=== PATIENT | male | born 1975 | race Two or more races ===

== ENCOUNTER 2020-11-02 07:49 | Emergency (ER) | payer SELFPAY ==
[~2020-11-02] VITALS: Ht 170.2 cm; Wt 59.7 kg
[~2020-11-02 07:49] MED LIST: DIPH25CA58 PO
[2020-11-02] MEDS ORDERED: MECLIZINE HCL 12.5 MG TABLET. PO ONE (09:00)
[2020-11-02] MEDS ORDERED: ONDANSETRON PF 4 MG/2 ML VIAL. IVP ONE (09:00)
[2020-11-02 09:09] LABS: BASO # 0.1 x10^3/uL (0.0-0.2); BASO % 2 % (0-3); EOS # 0.1 x10^3/uL (0.0-0.7); EOS % 3 % (0-3); HEMATOCRIT 39.1 % (39.0-53.0); HEMOGLOBIN 13.3 g/dL (13.0-17.5); LYMPH # 1.1 x10^3/uL (1.0-4.8); LYMPH % 24 % (24-48); MEAN CORPUSCULAR HEMOGLOBIN 31 pg (25-35); MEAN CORPUSCULAR HGB CONC 34 g/dL (31-37); MEAN CORPUSCULAR VOLUME 92 fL (79-100); MONO # 0.6 x10^3/uL (0.0-1.1); MONO % 12 % (0-9); NEUT # 2.8 x10^3/uL (1.8-7.7); NEUT % 60 % (31-73); PLATELET COUNT 502 x10^3/uL (140-400); RED BLOOD COUNT 4.24 x10^6/uL (4.30-5.70); RED CELL DISTRIBUTION WIDTH 14.4 % (11.5-14.5); WHITE BLOOD COUNT 4.8 x10^3/uL (4.0-11.0)
--- NOTE | 2020-11-02 09:16 | ED.ADGEN ---
Past Medical History Past Medical History: Hypertension, Renal Failure Past Surgical History: Cholecystectomy Smoking Status: Never Smoker Alcohol Use: None General Adult EDM: Chief Complaint: NAUSEA/VOMITING/DIARRHEA HPI: HPI: Patient is a 45 year old male coming in for dizziness. Patient's describes it as a spinning that is worse with movement and walking. Patient has a history significant for the recent diagnosis of kidney failure. Was hospitalized about 2 weeks ago and had a cholecystectomy as well as a dialysis shunt placed. Supposed be getting dialysis 3 times a week, Saturdays, has not had dialysis in since last which is 5 days ago. Patient states he has had one episode of vomiting tonight had a small amount of diarrhea. Denies any fever but is complaining of chills and body aches. Review of Systems: Review of Systems: All other systems within normal limits except for as noted in the HPI Current Medications: Current Medications Medications (Trade) Dose Ordered Sig/Vasile Start Time Stop Time Status Last Admin Dose Admin Meclizine HCl (Antivert) 25 mg 1X ONCE 11/02/20 09:00 11/02/20 09:04 DC 11/02/20 09:23 25 MG Ondansetron HCl (Zofran) 4 mg 1X ONCE 11/02/20 09:00 11/02/20 09:04 DC 11/02/20 09:23 4 MG Allergies: Allergies: Allergies Coded Allergies Type Severity Reaction Last Updated Verified No Known Drug Allergies 10/17/20 No Physical Exam: PE: Constitutional: Well developed, well nourished, no acute distress, non-toxic appearance. [] HENT: Normocephalic, atraumatic, bilateral external ears normal, nose normal. [] Eyes: PERRLA, conjunctiva normal, no discharge. No nystagmus, extraocular was intact [] Neck: No rigidity, supple, no stridor. [] Cardiovascular: Regular rate and rhythm, brisk cap refill [] Lungs & Thorax: Non labored symmetric respirations, no tachypnea or respiratory distress [] Abdomen: Soft, nondistended. Skin: Warm, dry, no erythema, no rash. Right IJ dialysis shunt in place, dressing clean dry and intact. Well-healing abdominal surgical wound [] Back: Unremarkable Extremities: No deformities, range of motion grossly intact, no lower extremity edema [] Neurologic: Alert and oriented X 3, no focal deficits noted. [] Psychologic: Affect normal, judgement normal, mood normal. [] Current Patient Data: Labs: Laboratory Tests Test 11/02/20 08:23 White Blood Count 4.8 x10^3/uL (4.0-11.0) Red Blood Count 4.24 x10^6/uL (4.30-5.70) L Hemoglobin 13.3 g/dL (13.0-17.5) Hematocrit 39.1 % (39.0-53.0) Mean Corpuscular Volume 92 fL (79-100) Mean Corpuscular Hemoglobin 31 pg (25-35) Mean Corpuscular Hemoglobin Concent 34 g/dL (31-37) Red Cell Distribution Width 14.4 % (11.5-14.5) Platelet Count 502 x10^3/uL (140-400) H Neutrophils (%) (Auto) 60 % (31-73) Lymphocytes (%) (Auto) 24 % (24-48) Monocytes (%) (Auto) 12 % (0-9) H Eosinophils (%) (Auto) 3 % (0-3) Basophils (%) (Auto) 2 % (0-3) Neutrophils # (Auto) 2.8 x10^3/uL (1.8-7.7) Lymphocytes # (Auto) 1.1 x10^3/uL (1.0-4.8) Monocytes # (Auto) 0.6 x10^3/uL (0.0-1.1) Eosinophils # (Auto) 0.1 x10^3/uL (0.0-0.7) Basophils # (Auto) 0.1 x10^3/uL (0.0-0.2) Sodium Level 144 mmol/L (136-145) Potassium Level 5.0 mmol/L (3.5-5.1) Chloride Level 104 mmol/L (98-107) Carbon Dioxide Level 31 mmol/L (21-32) Anion Gap 9 (6-14) Blood Urea Nitrogen 43 mg/dL (8-26) H Creatinine 3.7 mg/dL (0.7-1.3) H Estimated GFR (Cockcroft-Gault) 17.7 BUN/Creatinine Ratio 12 (6-20) Glucose Level 101 mg/dL (70-99) H Calcium Level 9.2 mg/dL (8.5-10.1) Phosphorus Level 4.6 mg/dL (2.6-4.7) Magnesium Level 1.7 mg/dL (1.8-2.4) L Total Bilirubin 0.8 mg/dL (0.2-1.0) Aspartate Amino Transferase (AST) 12 U/L (15-37) L Alanine Aminotransferase (ALT) 52 U/L (16-63) Alkaline Phosphatase 347 U/L (46-116) H Troponin I Quantitative < 0.017 ng/mL (0.000-0.055) CH-Fau-E-Type Natriuretic Peptide 198 pg/mL (0-124) H Total Protein 7.8 g/dL (6.4-8.2) Albumin 3.8 g/dL (3.4-5.0) Albumin/Globulin Ratio 1.0 (1.0-1.7) Laboratory Tests 11/02/20 08:23 Laboratory Tests 11/02/20 08:23 Vital Signs: Vital Signs Date Time Temp Pulse Resp B/P (MAP) Pulse Ox O2 Delivery O2 Flow Rate FiO2 11/02/20 09:31 66 152/102 (119) 100 Room Air 11/02/20 08:10 98.1 16 98.1 EKG: EKG: Sinus rhythm, heart rate 64 bpm, normal axis, no ST elevation or depression large T waves in septal leads [] Heart Score: C/O Chest Pain: No Risk Factors: Risk Factors: DM, Current or recent (<one month) smoker, HTN, HLP, family history of CAD, obesity. Risk Scores: Score 0 - 3: 2.5% MACE over next 6 weeks - Discharge Home Score 4 - 6: 20.3% MACE over next 6 weeks - Admit for Clinical Observation Score 7 - 10: 72.7% MACE over next 6 weeks - Early Invasive Strategies Radiology/Procedures: Radiology/Procedures: [facility] [address] [place], [place] [id number] IMAGING REPORT Signed PATIENT: TIMMY LITLTE ACCOUNT: [id number] : 1975 LOCATION: ER AGE: 45 SEX: M EXAM STATUS: REG ER ORD. PHYSICIAN: WILLIAM DURBIN MD REASON: Rt. shoulder pain PROCEDURE: SHOULDER 2+V RIGHT EXAM: RIGHT SHOULDER 3 VIEWS. HISTORY: Right shoulder pain. COMPARISON: None. FINDINGS: No fractures are identified. Glenohumeral joint spaces and alignment are maintained. Acromioclavicular joint spaces and alignment are maintained. A right internal jugular hemodialysis catheter has its tip in the superior cavoatrial junction. IMPRESSION: 1. No fracture or clear degenerative change. Electronically signed by: Jess Lezama MD (11/02/2020 11:10 AM) [id number] DICTATED and SIGNED BY: KINA LEZAMA MD DATE: 11/02/20 [id number] 0 [] Course & Med Decision Making: Course & Med Decision Making Pertinent Labs and Imaging studies reviewed. (See chart for details) Labs show no significant electrolyte abnormalities and kidney functioning continue to improve. Patient is making urine in emergency department that is normal looking. Discussed with Dr. Ochoa, would like port flushed and redressed. Would like 24-hour urine collection. Patient sent home with a urinal and instructions. She states that the office will call him to arrange follow-up and that he does not need dialysis today. [] Wanda Disclaimer: Wanda Disclaimer: This electronic medical record was generated, in whole or in part, using a voice recognition dictation system. Departure Departure Impression: Primary Impression: Dizziness Additional Impression: Right shoulder pain Disposition: HOME / SELF CARE / HOMELESS Condition: STABLE Referrals: NO PCP (PCP) Patient Instructions: Vertigo, [id number] Additional Instructions: Collect all urine for 24 hours after leaving emergency department. The pest control specialist will call you to schedule follow-up appointment in the next week. Scripts Meclizine Hcl (MECLIZINE HCL) 25 Mg Tablet 1 TAB PO TID for dizziness, #20 TAB Prov: WILLIAM DURBIN MD 11/02/20 Problem Qualifiers WILLIAM DURBIN MD Nov 02, 2020 09:16
[2020-11-02 09:19] LABS: CALCIUM 9.2 mg/dL (8.5-10.1); CREATININE 3.7 mg/dL (0.7-1.3); GFR 17.7
[2020-11-02 09:35] LABS: ALBUMIN 3.8 g/dL (3.4-5.0); MAGNESIUM 1.7 mg/dL (1.8-2.4); PHOSPHORUS 4.6 mg/dL (2.6-4.7); TOTAL BILIRUBIN 0.8 mg/dL (0.2-1.0); TOTAL PROTEIN 7.8 g/dL (6.4-8.2)
[2020-11-02] MEDS ORDERED: MECL-75 PO (11:05)
--- NOTE | 2020-11-02 11:13 | RAD ---
EXAM: RIGHT SHOULDER 3 VIEWS. HISTORY: Right shoulder pain. COMPARISON: None. FINDINGS: No fractures are identified. Glenohumeral joint spaces and alignment are maintained. Acromi oclavicular joint spaces and alignment are maintained. A right internal jugular hemodialysis catheter has its tip in the superior cavoatrial junction. IMPRESSION: 1. No fracture or clear degenerative change. Electronically signed by: Jess Lezama MD (11/02/2020 11:10 AM) [id number]
[2020-11-02 12:01] VITALS: BP 165/118
== END 2020-11-02 12:15 | disposition home or self-care (01) ==
LOC: ER 07:49
DX: R42 Dizziness and giddiness (principal); M25.511 Pain in right shoulder; R19.7 Diarrhea, unspecified; M79.10 Myalgia, unspecified site; I12.9 Hypertensive chronic kidney disease with stage 1 through stage 4 chronic kidney disease, or unspecified chronic kidney disease; N18.9 Chronic kidney disease, unspecified; Z90.49 Acquired absence of other specified parts of digestive tract
CPT/HCPCS: 36415; 73030; 80053; 83735; 83880; 84100; 84484; 85025; 93005; 96374; 99285; J2405; J8597

== ENCOUNTER 2020-11-05 13:00 | Emergency (ER) | payer SELFPAY ==
[~2020-11-05] VITALS: Ht 182.9 cm; Wt 54.5 kg
[~2020-11-05 13:00] MED LIST changes: +MECL-75 PO
[2020-11-05] MEDS ORDERED: ONDANSETRON PF 4 MG/2 ML VIAL. IVP ONE (14:45)
[2020-11-05] MEDS ORDERED: fentaNYL PF VIAL 100 MCG/2 ML VIAL IVP ONE (14:45)
--- NOTE | 2020-11-05 14:46 | PHYS DOC ---
Past Medical History Past Medical History: Hypertension, Renal Failure Past Surgical History: Cholecystectomy Additional Past Surgical Histo: RENAL BX,DIALYSYS PORT R CHEST,LAP MARK Smoking Status: Never Smoker Alcohol Use: None General Adult EDM: Chief Complaint: WEAKNESS/GENERALIZED HPI: HPI: Patient is a 45 year old male who presents with had a cholecystectomy on October 12 and an dialysis port put in the right chest on the October 17. Patient states he last got dialysis on last . Comes in today with 2 days of nausea, vomiting, headache, dizziness and right flank pain. He rates it at a 5 out of 10. It appears that he had a renal biopsy on 10/20. He denies shortness of air, chest pain, diarrhea, numbness or tingling, focal weakness, syncope, vision change. He states he cannot get into be seen at any current clinic. He states he supposed to be having dialysis 3 days a week but he has no follow-up care. Patient states his only history is renal failure. Patient is Kinyarwanda-speaking and an dramatic teacher phone is used. Patient is a poor historian. Review of Systems: Review of Systems: Constitutional: Denies fever or chills. [] Eyes: Denies change in visual acuity. [] HENT: Denies nasal congestion or sore throat. [] Respiratory: Denies cough or shortness of breath. [] Cardiovascular: Denies chest pain or edema. [] GI: Denies abdominal pain, +nausea, +vomiting, denies bloody stools or diarrhea. [] : Denies dysuria. [] Musculoskeletal: + Right flank back pain or denies joint pain. + Generalized weakness [] Integument: Denies rash. [] Neurologic: + headache, + dizziness. Denies focal weakness or sensory changes. [] Endocrine: Denies polyuria or polydipsia. [] Lymphatic: Denies swollen glands. [] Psychiatric: Denies depression or anxiety. [] Heart Score: C/O Chest Pain: No Risk Factors: Risk Factors: DM, Current or recent (<one month) smoker, HTN, HLP, family history of CAD, obesity. Risk Scores: Score 0 - 3: 2.5% MACE over next 6 weeks - Discharge Home Score 4 - 6: 20.3% MACE over next 6 weeks - Admit for Clinical Observation Score 7 - 10: 72.7% MACE over next 6 weeks - Early Invasive Strategies Allergies: Allergies: Allergies Coded Allergies Type Severity Reaction Last Updated Verified No Known Drug Allergies 10/17/20 No Physical Exam: PE: Constitutional: Well developed, well nourished, no acute distress, non-toxic appearance. [] HENT: Normocephalic, atraumatic, bilateral external ears normal, oropharynx moist, no oral exudates, nose normal. [] Eyes: PERRLA, EOMI, conjunctiva normal, no discharge. [] Neck: Normal range of motion, no tenderness, supple, no stridor. [] Cardiovascular:Heart rate regular rhythm, no murmur [] Lungs & Thorax: Bilateral breath sounds clear to auscultation [] Abdomen: Bowel sounds normal, soft, no tenderness, no masses, no pulsatile masses. [] Skin: Warm, dry, no erythema, no rash. [] Back: No tenderness, no CVA tenderness. [] Extremities: No tenderness, no cyanosis, no clubbing, ROM intact, no edema. [] Neurologic: Alert and oriented X 3, normal motor function, normal sensory function, no focal deficits noted. [] Psychologic: Affect normal, judgement normal, mood normal. Normal physical exam [] Current Patient Data: Labs: Laboratory Tests Test 11/05/20 13:49 Glucose (Fingerstick) 97 mg/dL (70-99) EKG: EKG: [[address] Combs is sinus rhythm and no STEMI Radiology/Procedures: Radiology/Procedures: [] Impression: [facility] [address] [place], [place] [phone] IMAGING REPORT Signed PATIENT: TIMMY LITTLE ACCOUNT: [id number] : 1975 LOCATION: ER AGE: 45 SEX: M EXAM STATUS: REG ER ORD. PHYSICIAN: RACHAEL COTTO APRN REASON: pain, vomiting PROCEDURE: CT ABDOMEN PELVIS WO CONTRAST Exam: CT abdomen/pelvis without contrast Indication: Pain, vomiting Comparison: CT abdomen and pelvis 10/17/2020 Technique: Helical CT imaging performed of the abdomen and pelvis without contrast. Sagittal and coronal reformats were obtained. One or more of the following individualized dose reduction techniques were utilized for this examination: 1. Automated exposure control 2. Adjustment of the mA and/or kV according to patient size 3. Use of iterative reconstruction technique. Findings: Lower chest: Mild atelectasis in the lung bases. Heart is normal in size. Liver: Normal noncontrast appearance of the liver. Gallbladder/Biliary Tree: The gallbladder is surgically absent. Bile ducts are unremarkable. Pancreas: Normal. Spleen: Normal. Adrenal Glands: Normal. Kidneys/Ureters/Bladder: Normal. No hydronephrosis or nephrolithiasis. Reproductive Organs: Normal. Stomach, small bowel, and colon: The stomach, small bowel, colon, and appendix are normal. Vasculature: Normal. Lymph Nodes: Normal. Peritoneum and retroperitoneum: No free fluid or free air. Bones: No acute osseous abnormality. IMPRESSION: Interval cholecystectomy. No acute abnormality in the abdomen and pelvis. Electronically signed by: Christie Lester MD (11/05/2020 4:42 PM) [id number] DICTATED and SIGNED BY: CHRISTIE LESTER MD DATE: 11/05/20 [id number] Course & Med Decision Making: Course & Med Decision Making Pertinent Labs and Imaging studies reviewed. (See chart for details) See HPI. Alert and oriented x4. Abdomen is soft and nontender. Port site looks clean and no signs of infection. Speaks in full clear sentences. Patient states he is still making urine. Afebrile. No nystagmus. PERRLA. Ambulatory with a steady gait. Blood work unremarkable. Patient does not require dialysis at this time. I did talk to Dr. Díaz he states the patient does not require dialysis this time I look back into the notes and social services manager stated that since the patient is self-pay Jon refused him and he would have to pay [id number]. Patient cannot pay [id number]. So social services manager told the patient that he would have to come to the emergency room to be checked for need of dialysis. Chest x- ray is looking better than it did previously. He is not hypoxic. Vital signs are within normal limits. He was p.o. challenge successfully. [] Wanda Disclaimer: Dragon Disclaimer: This electronic medical record was generated, in whole or in part, using a voice recognition dictation system. Departure Departure Impression: Primary Impression: Nausea & vomiting Qualified Codes: R11.2 - Nausea with vomiting, unspecified Disposition: HOME / SELF CARE / HOMELESS Condition: STABLE Referrals: NO PCP (PCP) Patient Instructions: Dialysis, Dialysis Diet, Nausea and Vomiting Additional Instructions: Follow-up with any doctors as scheduled. Drink plenty of fluids as you have been directed. If your symptoms return and worsen you come back to the ED. RACHAEL COTTO WATER TRUCK DRIVER Nov 05, 2020 14:46
[2020-11-05] MEDS ORDERED: IV NORMAL SALINE 1000ML BAG 1,000 ML IV ONE (15:00)
--- NOTE | 2020-11-05 15:06 | RAD ---
EXAMINATION: XR CHEST 1V CLINICAL HISTORY: Vomiting, weakness EXAM DATE/TIME: 11/05/2020 2:38 PM COMPARISON: 10/21/2020 FINDINGS: Lines, Tubes, and Devices: Tunneled right internal jugular hemodialysis catheter remains in similar p osition. Cardiomediastinal Silhouette: Within normal limits. Lungs and Pleura: Improved aeration of the bilateral lungs with nonspecific mild diffuse interstitial prominence, possibly chronic. No focal airspace consolidation or pleural effusion. Bones and Soft Tissues: No acute osseous abnormality. IMPRESSION: Improved aeration of the bilateral lungs with nonspecific mild diffuse interstitial prominence, possi deniz chronic. Electronically signed by: Campos Gill DO (11/05/2020 3:03 PM) [id number]
[2020-11-05 15:14] LABS: BASO # 0.1 x10^3/uL (0.0-0.2); BASO % 1 % (0-3); EOS # 0.1 x10^3/uL (0.0-0.7); EOS % 2 % (0-3); HEMATOCRIT 38.3 % (39.0-53.0); HEMOGLOBIN 13.3 g/dL (13.0-17.5); LYMPH # 0.9 x10^3/uL (1.0-4.8); LYMPH % 17 % (24-48); MEAN CORPUSCULAR HEMOGLOBIN 32 pg (25-35); MEAN CORPUSCULAR HGB CONC 35 g/dL (31-37); MEAN CORPUSCULAR VOLUME 91 fL (79-100); MONO # 0.7 x10^3/uL (0.0-1.1); MONO % 12 % (0-9); NEUT # 3.7 x10^3/uL (1.8-7.7); NEUT % 68 % (31-73); PLATELET COUNT 381 x10^3/uL (140-400); WHITE BLOOD COUNT 5.5 x10^3/uL (4.0-11.0)
[2020-11-05 15:29] LABS: CALCIUM 8.8 mg/dL (8.5-10.1); CREATININE 2.2 mg/dL (0.7-1.3); GFR 32.2; POTASSIUM 4.3 mmol/L (3.5-5.1)
[2020-11-05 15:35] LABS: ALBUMIN 3.9 g/dL (3.4-5.0); MAGNESIUM 1.6 mg/dL (1.8-2.4); TOTAL BILIRUBIN 0.7 mg/dL (0.2-1.0); TOTAL PROTEIN 7.9 g/dL (6.4-8.2)
--- NOTE | 2020-11-05 16:44 | RAD ---
Exam: CT abdomen/pelvis without contrast Indication: Pain, vomiting Comparison: CT abdomen and pelvis 10/17/2020 Technique: Helical CT imaging performed of the abdomen and pelvis without contrast. Sagittal and josafat nal reformats were obtained. One or more of the following individualized dose reduction techniques were utilized for this examinat ion: 1. Automated exposure control 2. Adjustment of the mA and/or kV according to patient size 3. Use of iterative reconstruction technique. Findings: Lower chest: Mild atelectasis in the lung bases. Heart is normal in size. Liver: Normal noncontrast appearance of the liver. Gallbladder/Biliary Tree: The gallbladder is surgically absent. Bile ducts are unremarkable. Pancreas: Normal. Spleen: Normal. Adrenal Glands: Normal. Kidneys/Ureters/Bladder: Normal. No hydronephrosis or nephrolithiasis. Reproductive Organs: Normal. Stomach, small bowel, and colon: The stomach, small bowel, colon, and appendix are normal. Vasculature: Normal. Lymph Nodes: Normal. Peritoneum and retroperitoneum: No free fluid or free air. Bones: No acute osseous abnormality. IMPRESSION: Interval cholecystectomy. No acute abnormality in the abdomen and pelvis. Electronically signed by: Christie Lester MD (11/05/2020 4:42 PM) [id number]
[2020-11-05 16:45] LABS: BILIRUBIN,URINE NEGATIVE (NEG); CLARITY,URINE CLEAR; COLOR,URINE YELLOW; NITRITE,URINE NEGATIVE (NEG); PROTEIN,URINE NEGATIVE (NEG-TRACE); UROBILINOGEN,URINE 0.2 mg/dL (0.2 mg/dL)
[2020-11-05 16:59] LABS: HYALINE CASTS, URINE FEW /HPF
[2020-11-05 17:00] LABS: BACTERIA,URINE 0 /HPF (0-FEW)
--- NOTE | 2020-11-05 17:05 | EKG ---
[facility] [address] [place] [phone] Test Date: 2020-11-05 Test Time: 13:42:34 Pat Name: TIMMY LITTLE Department: Room: Gender: M Dietetic Technician Registered: : 1975 Requested By: RACHAEL COTTO Order Number: [id number] [place] MD: Measurements Intervals Tamiment Rate: 72 P: 59 UT: 136 QRS: 55 QRSD: 86 T: 59 QT: 358 QTc: 398 Interpretive Statements SINUS RHYTHM LEFT ATRIAL ABNORMALITY ABNORMAL ECG RI6.02 No previous ECG available for comparison
[2020-11-05 19:28] VITALS: BP 158/105
== END 2020-11-05 19:42 | disposition home or self-care (01) ==
LOC: ER 13:00
DX: R11.2 Nausea with vomiting, unspecified (principal); R51.9 Headache, unspecified; R42 Dizziness and giddiness; I12.9 Hypertensive chronic kidney disease with stage 1 through stage 4 chronic kidney disease, or unspecified chronic kidney disease; N18.9 Chronic kidney disease, unspecified; Z99.2 Dependence on renal dialysis; Z90.49 Acquired absence of other specified parts of digestive tract
CPT/HCPCS: 36415; 71045; 74176; 80053; 81001; 82962; 83690; 83735; 84484; 85025; 93005; 96361; 96374; 96375; 99285; J2405; J3010; J7030

== ENCOUNTER → 2020-11-08 | Outpatient (CLI) | payer SELFPAY ==
[2020-11-05 19:28] VITALS: BP 158/105
[2020-11-08 10:14] LABS: CALCIUM 8.9 mg/dL (8.5-10.1); CREATININE 1.6 mg/dL (0.7-1.3); GFR 46.6; POTASSIUM 3.9 mmol/L (3.5-5.1)
== END ==
LOC: LAB 09:23
PROVIDERS: ATTEND Internal Medicine Nephrology
DX: N17.9 Acute kidney failure, unspecified (principal)
CPT/HCPCS: 36415; 80048

== ENCOUNTER 2020-11-12 07:30 | Outpatient (CLI) | payer SELFPAY ==
[~2020-11-12] VITALS: Ht 172.7 cm; Wt 54.0 kg
[2020-11-12 08:11] VITALS: BP 157/111
--- NOTE | 2020-11-12 08:27 | NUR ---
Patient's and central lab technician able to explain procedure to patient in Wolof. Verbalized understanding, consents signed. VS stable. No sedation provided. TDC removed by Dr. Robert at bedside. Manual pressure held. Gauze, opsite applied to site. No bleeding. Patient d/c. No medication changes. All belongings taken with patient at time of d/c.
[2020-11-12 08:30] VITALS: BP 160/106
--- NOTE | 2020-11-12 13:14 | RAD ---
Removal of right internal jugular tunneled hemodialysis catheter. 11/12/2020 Indication: Patient no longer requires dialysis access Discussion: The risks and benefits of the procedure including but limited to bleeding, catheter fragm entation, and infection were discussed the patient. Informed consent was obtained. The patient was br ought to the fluoroscopy suite and placed in the supine position. A time procedure was performed. Rig ht chest and dialysis catheter was prepped using maximum sterile barrier technique. 1% lidocaine with out epinephrine was administered for local anesthesia the catheter was removed with traction. Manual pressure was held. No immediate complications were identified. A sterile dressing was applied. Impression: Removal of right internal jugular tunneled hemodialysis catheter Electronically signed by: Salvador Robert MD (11/12/2020 1:11 PM) [id number]
== END 2020-11-12 08:45 | disposition home or self-care (01) ==
LOC: INTRAD 07:30
PROVIDERS: ATTEND Internal Medicine Nephrology
DX: Z45.2 Encounter for adjustment and management of vascular access device (principal); Z99.2 Dependence on renal dialysis; Z79.899 Other long term (current) drug therapy; Z98.890 Other specified postprocedural states; Z88.0 Allergy status to penicillin
CPT/HCPCS: 36589

== ENCOUNTER → 2021-02-07 | Outpatient (CLI) | payer SELFPAY ==
[2021-02-07 10:38] LABS: BASO # 0.1 x10^3/uL (0.0-0.2); BASO % 1 % (0-3); EOS # 0.1 x10^3/uL (0.0-0.7); EOS % 1 % (0-3); HEMATOCRIT 47.1 % (39.0-53.0); HEMOGLOBIN 15.9 g/dL (13.0-17.5); LYMPH % 39 % (24-48); MEAN CORPUSCULAR HEMOGLOBIN 32 pg (25-35); MEAN CORPUSCULAR HGB CONC 34 g/dL (31-37); MEAN CORPUSCULAR VOLUME 95 fL (79-100); MONO # 0.5 x10^3/uL (0.0-1.1); MONO % 10 % (0-9); NEUT # 2.5 x10^3/uL (1.8-7.7); NEUT % 49 % (31-73); PLATELET COUNT 189 x10^3/uL (140-400); RED BLOOD COUNT 4.96 x10^6/uL (4.30-5.70); RED CELL DISTRIBUTION WIDTH 14.1 % (11.5-14.5); WHITE BLOOD COUNT 5.2 x10^3/uL (4.0-11.0)
[2021-02-07 10:52] LABS: CREATININE 0.9 mg/dL (0.7-1.3); GFR 90.4; POTASSIUM 3.5 mmol/L (3.5-5.1)
[2021-02-07 10:57] LABS: ALBUMIN 3.9 g/dL (3.4-5.0); ALBUMIN/GLOBULIN RATIO 1.1 (1.0-1.7); TOTAL BILIRUBIN 0.6 mg/dL (0.2-1.0); TOTAL PROTEIN 7.5 g/dL (6.4-8.2)
== END ==
LOC: ONCLAB 09:22
PROVIDERS: ATTEND Internal Medicine Hematology & Oncology
DX: D59.5 Paroxysmal nocturnal hemoglobinuria [Marchiafava-Micheli] (principal)
CPT/HCPCS: 36415; 80053; 85025

== ENCOUNTER → 2021-02-15 | Outpatient (CLI) | payer SELFPAY ==
[2021-02-15 10:28] LABS: BASO # 0.1 x10^3/uL (0.0-0.2); BASO % 3 % (0-3); EOS # 0.1 x10^3/uL (0.0-0.7); EOS % 3 % (0-3); HEMATOCRIT 46.4 % (39.0-53.0); HEMOGLOBIN 15.6 g/dL (13.0-17.5); LYMPH # 1.8 x10^3/uL (1.0-4.8); LYMPH % 41 % (24-48); MEAN CORPUSCULAR HEMOGLOBIN 32 pg (25-35); MEAN CORPUSCULAR HGB CONC 34 g/dL (31-37); MEAN CORPUSCULAR VOLUME 94 fL (79-100); MONO # 0.5 x10^3/uL (0.0-1.1); MONO % 12 % (0-9); NEUT # 1.8 x10^3/uL (1.8-7.7); NEUT % 41 % (31-73); PLATELET COUNT 185 x10^3/uL (140-400); RED BLOOD COUNT 4.91 x10^6/uL (4.30-5.70); RED CELL DISTRIBUTION WIDTH 13.9 % (11.5-14.5); WHITE BLOOD COUNT 4.4 x10^3/uL (4.0-11.0)
[2021-02-15 11:10] LABS: CALCIUM 8.8 mg/dL (8.5-10.1); CREATININE 0.7 mg/dL (0.7-1.3); GFR 120.9
[2021-02-15 11:13] LABS: ALBUMIN 3.6 g/dL (3.4-5.0); TOTAL BILIRUBIN 0.6 mg/dL (0.2-1.0); TOTAL PROTEIN 7.3 g/dL (6.4-8.2)
[2021-02-15 11:16] LABS: POTASSIUM 4.4 mmol/L (3.5-5.1)
== END ==
LOC: ONCLAB 09:24
PROVIDERS: ATTEND Internal Medicine Hematology & Oncology
DX: D59.5 Paroxysmal nocturnal hemoglobinuria [Marchiafava-Micheli] (principal)
CPT/HCPCS: 36415; 80053; 85025

== ENCOUNTER → 2021-02-22 | Outpatient (CLI) | payer SELFPAY ==
[2021-02-22 10:56] LABS: BASO % 1 % (0-3); EOS # 0.1 x10^3/uL (0.0-0.7); EOS % 2 % (0-3); HEMATOCRIT 45.6 % (39.0-53.0); HEMOGLOBIN 15.3 g/dL (13.0-17.5); LYMPH # 1.8 x10^3/uL (1.0-4.8); LYMPH % 43 % (24-48); MEAN CORPUSCULAR HEMOGLOBIN 32 pg (25-35); MEAN CORPUSCULAR HGB CONC 34 g/dL (31-37); MEAN CORPUSCULAR VOLUME 95 fL (79-100); MONO # 0.5 x10^3/uL (0.0-1.1); MONO % 12 % (0-9); NEUT # 1.8 x10^3/uL (1.8-7.7); NEUT % 42 % (31-73); PLATELET COUNT 189 x10^3/uL (140-400); RED CELL DISTRIBUTION WIDTH 14.1 % (11.5-14.5); WHITE BLOOD COUNT 4.3 x10^3/uL (4.0-11.0)
[2021-02-22 11:04] LABS: CALCIUM 8.7 mg/dL (8.5-10.1); CREATININE 0.8 mg/dL (0.7-1.3); GFR 103.6; POTASSIUM 3.8 mmol/L (3.5-5.1)
[2021-02-22 11:10] LABS: ALBUMIN 3.7 g/dL (3.4-5.0); ALBUMIN/GLOBULIN RATIO 1.1 (1.0-1.7); TOTAL BILIRUBIN 0.7 mg/dL (0.2-1.0); TOTAL PROTEIN 7.2 g/dL (6.4-8.2)
== END ==
LOC: ONCLAB 10:27
PROVIDERS: ATTEND Internal Medicine Hematology & Oncology
DX: D59.5 Paroxysmal nocturnal hemoglobinuria [Marchiafava-Micheli] (principal)
CPT/HCPCS: 36415; 80053; 83010; 83615; 85025

== ENCOUNTER → 2021-03-01 | Outpatient (CLI) | payer SELFPAY ==
[2021-03-01 11:05] LABS: BASO # 0.1 x10^3/uL (0.0-0.2); BASO % 2 % (0-3); EOS # 0.1 x10^3/uL (0.0-0.7); EOS % 2 % (0-3); HEMATOCRIT 47.8 % (39.0-53.0); HEMOGLOBIN 15.9 g/dL (13.0-17.5); LYMPH # 1.9 x10^3/uL (1.0-4.8); LYMPH % 42 % (24-48); MEAN CORPUSCULAR HEMOGLOBIN 32 pg (25-35); MEAN CORPUSCULAR HGB CONC 33 g/dL (31-37); MEAN CORPUSCULAR VOLUME 95 fL (79-100); MONO # 0.6 x10^3/uL (0.0-1.1); MONO % 13 % (0-9); NEUT # 1.9 x10^3/uL (1.8-7.7); NEUT % 42 % (31-73); PLATELET COUNT 197 x10^3/uL (140-400); RED BLOOD COUNT 5.02 x10^6/uL (4.30-5.70); RED CELL DISTRIBUTION WIDTH 13.7 % (11.5-14.5); WHITE BLOOD COUNT 4.5 x10^3/uL (4.0-11.0)
[2021-03-01 11:13] LABS: ALBUMIN 3.8 g/dL (3.4-5.0); ALBUMIN/GLOBULIN RATIO 1.1 (1.0-1.7); CALCIUM 8.7 mg/dL (8.5-10.1); CREATININE 0.8 mg/dL (0.7-1.3); GFR 103.6; POTASSIUM 3.7 mmol/L (3.5-5.1); TOTAL BILIRUBIN 0.6 mg/dL (0.2-1.0); TOTAL PROTEIN 7.4 g/dL (6.4-8.2)
== END ==
LOC: ONCLAB 09:21
PROVIDERS: ATTEND Internal Medicine Hematology & Oncology
DX: D59.5 Paroxysmal nocturnal hemoglobinuria [Marchiafava-Micheli] (principal)
CPT/HCPCS: 36415; 80053; 83010; 83615; 85025

== ENCOUNTER → 2021-03-15 | Outpatient (CLI) | payer SELFPAY ==
[2021-03-15 10:22] LABS: BASO # 0.1 x10^3/uL (0.0-0.2); BASO % 1 % (0-3); EOS # 0.1 x10^3/uL (0.0-0.7); EOS % 1 % (0-3); HEMATOCRIT 47.6 % (39.0-53.0); HEMOGLOBIN 16.1 g/dL (13.0-17.5); LYMPH # 1.3 x10^3/uL (1.0-4.8); LYMPH % 28 % (24-48); MEAN CORPUSCULAR HEMOGLOBIN 32 pg (25-35); MEAN CORPUSCULAR HGB CONC 34 g/dL (31-37); MEAN CORPUSCULAR VOLUME 94 fL (79-100); MONO # 0.5 x10^3/uL (0.0-1.1); MONO % 11 % (0-9); NEUT # 2.7 x10^3/uL (1.8-7.7); NEUT % 58 % (31-73); PLATELET COUNT 174 x10^3/uL (140-400); RED BLOOD COUNT 5.05 x10^6/uL (4.30-5.70); RED CELL DISTRIBUTION WIDTH 13.8 % (11.5-14.5); WHITE BLOOD COUNT 4.6 x10^3/uL (4.0-11.0)
[2021-03-15 10:34] LABS: CALCIUM 8.7 mg/dL (8.5-10.1); CREATININE 0.9 mg/dL (0.7-1.3); GFR 90.4; POTASSIUM 3.6 mmol/L (3.5-5.1)
[2021-03-15 10:41] LABS: ALBUMIN 3.9 g/dL (3.4-5.0); ALBUMIN/GLOBULIN RATIO 1.1 (1.0-1.7); TOTAL BILIRUBIN 0.7 mg/dL (0.2-1.0); TOTAL PROTEIN 7.4 g/dL (6.4-8.2)
== END ==
LOC: ONCLAB 09:38
PROVIDERS: ATTEND Physician Assistant
DX: D59.5 Paroxysmal nocturnal hemoglobinuria [Marchiafava-Micheli] (principal)
CPT/HCPCS: 36415; 80053; 83010; 83615; 85025

== ENCOUNTER → 2021-03-29 | Outpatient (CLI) | payer MEDICAID ==
[2021-03-29 10:56] LABS: CALCIUM 8.9 mg/dL (8.5-10.1); CREATININE 0.8 mg/dL (0.7-1.3); GFR 103.6
[2021-03-29 10:57] LABS: BASO % 1 % (0-3); EOS % 1 % (0-3); HEMATOCRIT 47.5 % (39.0-53.0); HEMOGLOBIN 16.1 g/dL (13.0-17.5); LYMPH # 1.5 x10^3/uL (1.0-4.8); LYMPH % 36 % (24-48); MEAN CORPUSCULAR HEMOGLOBIN 32 pg (25-35); MEAN CORPUSCULAR HGB CONC 34 g/dL (31-37); MEAN CORPUSCULAR VOLUME 94 fL (79-100); MONO # 0.5 x10^3/uL (0.0-1.1); MONO % 12 % (0-9); NEUT # 2.1 x10^3/uL (1.8-7.7); NEUT % 51 % (31-73); PLATELET COUNT 188 x10^3/uL (140-400); RED BLOOD COUNT 5.08 x10^6/uL (4.30-5.70); RED CELL DISTRIBUTION WIDTH 13.7 % (11.5-14.5); WHITE BLOOD COUNT 4.1 x10^3/uL (4.0-11.0)
[2021-03-29 11:04] LABS: ALBUMIN 3.9 g/dL (3.4-5.0); ALBUMIN/GLOBULIN RATIO 1.1 (1.0-1.7); TOTAL BILIRUBIN 0.7 mg/dL (0.2-1.0); TOTAL PROTEIN 7.4 g/dL (6.4-8.2)
== END ==
LOC: ONCLAB 09:30
PROVIDERS: ATTEND Internal Medicine Hematology & Oncology
DX: D59.5 Paroxysmal nocturnal hemoglobinuria [Marchiafava-Micheli] (principal)
CPT/HCPCS: 36415; 80053; 83010; 83615; 85025

== ENCOUNTER → 2021-05-25 | Outpatient (CLI) | payer MEDICAID ==
[2021-05-25 10:42] LABS: BASO % 0 % (0-3); EOS # 0.1 x10^3/uL (0.0-0.7); EOS % 2 % (0-3); HEMOGLOBIN 16.5 g/dL (13.0-17.5); LYMPH # 1.7 x10^3/uL (1.0-4.8); LYMPH % 39 % (24-48); MEAN CORPUSCULAR HEMOGLOBIN 32 pg (25-35); MEAN CORPUSCULAR HGB CONC 34 g/dL (31-37); MEAN CORPUSCULAR VOLUME 94 fL (79-100); MONO # 0.5 x10^3/uL (0.0-1.1); MONO % 12 % (0-9); NEUT # 2.1 x10^3/uL (1.8-7.7); NEUT % 47 % (31-73); PLATELET COUNT 197 x10^3/uL (140-400); RED BLOOD COUNT 5.23 x10^6/uL (4.30-5.70); RED CELL DISTRIBUTION WIDTH 13.8 % (11.5-14.5); WHITE BLOOD COUNT 4.4 x10^3/uL (4.0-11.0)
[2021-05-25 13:09] LABS: ALBUMIN 3.7 g/dL (3.4-5.0); ALBUMIN/GLOBULIN RATIO 0.9 (1.0-1.7); CALCIUM 8.8 mg/dL (8.5-10.1); CREATININE 0.7 mg/dL (0.7-1.3); GFR 120.9; POTASSIUM 4.2 mmol/L (3.5-5.1); TOTAL BILIRUBIN 0.7 mg/dL (0.2-1.0); TOTAL PROTEIN 7.7 g/dL (6.4-8.2)
== END ==
LOC: ONCLAB 10:06
PROVIDERS: ATTEND Physician Assistant
DX: D59.5 Paroxysmal nocturnal hemoglobinuria [Marchiafava-Micheli] (principal)
CPT/HCPCS: 36415; 80053; 83010; 83615; 85025

== ENCOUNTER → 2021-07-20 | Outpatient (CLI) | payer MEDICAID ==
[2021-07-20 09:45] LABS: BASO # 0.1 x10^3/uL (0.0-0.2); BASO % 2 % (0-3); EOS # 0.1 x10^3/uL (0.0-0.7); EOS % 2 % (0-3); HEMATOCRIT 45.2 % (39.0-53.0); HEMOGLOBIN 15.1 g/dL (13.0-17.5); LYMPH # 1.4 x10^3/uL (1.0-4.8); LYMPH % 34 % (24-48); MEAN CORPUSCULAR HEMOGLOBIN 31 pg (25-35); MEAN CORPUSCULAR HGB CONC 33 g/dL (31-37); MEAN CORPUSCULAR VOLUME 93 fL (79-100); MONO # 0.4 x10^3/uL (0.0-1.1); MONO % 10 % (0-9); NEUT # 2.1 x10^3/uL (1.8-7.7); NEUT % 52 % (31-73); PLATELET COUNT 225 x10^3/uL (140-400); RED BLOOD COUNT 4.86 x10^6/uL (4.30-5.70); RED CELL DISTRIBUTION WIDTH 13.8 % (11.5-14.5)
[2021-07-20 10:01] LABS: ALBUMIN 3.8 g/dL (3.4-5.0); ALBUMIN/GLOBULIN RATIO 1.1 (1.0-1.7); CALCIUM 8.4 mg/dL (8.5-10.1); CREATININE 0.7 mg/dL (0.7-1.3); GFR 120.4; POTASSIUM 3.7 mmol/L (3.5-5.1); TOTAL BILIRUBIN 0.7 mg/dL (0.2-1.0); TOTAL PROTEIN 7.3 g/dL (6.4-8.2)
== END ==
LOC: ONCLAB 09:02
PROVIDERS: ATTEND Internal Medicine Hematology & Oncology
DX: D59.5 Paroxysmal nocturnal hemoglobinuria [Marchiafava-Micheli] (principal)
CPT/HCPCS: 36415; 80053; 83010; 83615; 85025

== ENCOUNTER → 2021-10-14 | Outpatient (CLI) | payer MEDICAID ==
[2021-10-14 10:55] LABS: BASO # 0.1 x10^3/uL (0.0-0.2); BASO % 2 % (0-3); EOS # 0.3 x10^3/uL (0.0-0.7); EOS % 7 % (0-3); HEMATOCRIT 44.7 % (39.0-53.0); HEMOGLOBIN 15.3 g/dL (13.0-17.5); LYMPH # 1.4 x10^3/uL (1.0-4.8); LYMPH % 29 % (24-48); MEAN CORPUSCULAR HEMOGLOBIN 32 pg (25-35); MEAN CORPUSCULAR HGB CONC 34 g/dL (31-37); MEAN CORPUSCULAR VOLUME 93 fL (79-100); MONO # 0.5 x10^3/uL (0.0-1.1); MONO % 11 % (0-9); NEUT # 2.6 x10^3/uL (1.8-7.7); NEUT % 52 % (31-73); PLATELET COUNT 164 x10^3/uL (140-400); RED BLOOD COUNT 4.83 x10^6/uL (4.30-5.70); RED CELL DISTRIBUTION WIDTH 13.9 % (11.5-14.5)
[2021-10-14 10:58] LABS: CALCIUM 8.8 mg/dL (8.5-10.1); CREATININE 0.8 mg/dL (0.7-1.3); GFR 103.2; POTASSIUM 3.8 mmol/L (3.5-5.1)
[2021-10-14 11:05] LABS: ALBUMIN 3.5 g/dL (3.4-5.0); ALBUMIN/GLOBULIN RATIO 0.9 (1.0-1.7); TOTAL BILIRUBIN 0.7 mg/dL (0.2-1.0); TOTAL PROTEIN 7.2 g/dL (6.4-8.2)
== END ==
LOC: ONCLAB 10:10
PROVIDERS: ATTEND Internal Medicine Hematology & Oncology
DX: D59.5 Paroxysmal nocturnal hemoglobinuria [Marchiafava-Micheli] (principal)
CPT/HCPCS: 36415; 80053; 83010; 83615; 85025